=== PATIENT | male | born 1960 | race Caucasian/White ===

== ENCOUNTER 2020-12-06 10:39 | Emergency (ER) | payer BC, SELFPAY ==
--- NOTE | ~2020-12-06 | XR_ITS ---
EXAMINATION: XR chest 2V EXAM DATE: 12/06/2020 11:04 INDICATION: Chest tightness. TECHNIQUE: Frontal and lateral projections of the chest obtained and reviewed. Comparison is made to prior examination from 01/22/2016. FINDINGS: The lungs are clear. There are no pleural effusions. The cardiomediastinal silhouette is within normal limits. There is no pneumothorax suspected. There are bony degenerative changes. IMPRESSION: No acute cardiopulmonary findings. Reviewed, dictated and finalized at location B. ENSING AND MEASURING OPTICIAN
--- NOTE | 2020-12-06 10:41 | ECG_ITS ---
Measurements Intervals [place] Rate: 63 P: 24 CO: 171 QRS: 51 QRSD: 101 T: 54 QT: 391 QTc: 401 Interpretive Statements SINUS RHYTHM BASELINE WANDER- I, III NORMAL ECG Electronically Signed On 12-06-2020 11:17:21 IT INFRASTRUCTURE SPECIALIST by Milan Tejada D.O.
[2020-12-06 10:46] VITALS: BP 169/93; PULSE 66; RESP 18; TEMP 36.3; O2SAT 100
[2020-12-06 11:22] LABS: Basophils Percent Auto 0.3 % (0.2-1.2); Eosinophils Absolute Auto 0.1 K/mm3 (0-0.3); Eosinophils Percent Auto 0.8 % (0-4.4); Hematocrit 42.2 % (42.0-52.0); Hemoglobin 14.4 g/dL (14.0-18.0); Immature Granulocyte Absolute 0.01 K/mm3 (0.00-0.031); Immature Granulocyte Percent A 0.2 % (0-0.5); Lymphocytes Absolute Auto 1.38 K/mm3 (0.9-3.2); Lymphocytes Percent Auto 22.7 % (18.3-44.2); Mean Corpuscular HGB Conc 34.1 g/dl (32-36); Mean Corpuscular Hemoglobin 32.5 pg (26-34); Mean Corpuscular Volume 95.3 fl (80-100); Mean Platelet Volume 9.8 fl (7.4-10.4); Monocytes Absolute Auto 0.5 K/mm3 (0.1-0.6); Monocytes Percent Auto 8.4 % (2.6-8.5); Neutrophils Absolute Auto 4.1 K/mm3 (1.3-6.7); Neutrophils Percent Auto 67.6 % (45.5-73.1); Platelet Count Result 254 k/mm3 (150-375); Red Blood Count 4.43 M/mm3 (4.6-6.20); Red Cell Distribution Width 12.6 % (11.5-14.5); White Blood Count 6.1 K/mm3 (4.5-10.0)
[2020-12-06 11:34] LABS: Anion Gap 9 mmol/L (8-16); Blood Urea Nitrogen 18 mg/dL (9-20); Calcium 8.9 mg/dL (8.4-10.2); Carbon Dioxide 29 mmol/L (22-30); Chloride 103 mmol/L (98-107); Estimated CRCL calculation 64 ml/min; Estimated Glomerular Filt Rate > 60; Glucose 108 mg/dL (75-110); INR 0.9; Potassium 4.1 mmol/L (3.4-5.0); Sodium 141 mmol/L (137-145)
[2020-12-06 11:35] LABS: Partial Thromboplastin Time 27.2 SECONDS (22.3-36.8)
[2020-12-06 11:46] LABS: Troponin I < 0.012 ng/mL (0.000-0.034)
[2020-12-06 12:21] VITALS: BP 185/98; PULSE 64; RESP 17; O2SAT 97
--- NOTE | 2020-12-06 12:48 | ED.CHESTPAIN ---
HPI - Chest Pain General Chief Complaint: Chest Pain Stated Complaint: chest tightness Time Seen by Provider: 12/06/20 12:01 Source: patient Mode of arrival: ambulatory Limitations: no limitations History of Present Illness HPI narrative: A 60-year-old male presents to the emergency department with complaints of chest pain starting earlier this morning. Patient notes that its been intermittent for the last couple of days. He describes it more as a pressure. He states that it is worse first thing in the morning and tends to gradually go away throughout the day. Patient notes that he had a stress test back in 2012 that was normal. He only takes medicine for cholesterol. Patient states that the pressure stays in his central chest and does not radiate anywhere. Related Data Allergies Allergy/AdvReac Type Severity Reaction Status Date / Time No Known Allergies Allergy Unverified 03/19/17 14:50 Review of Systems Review of Systems: Narrative: CONSTITUTIONAL: Denies fever, chills, or sweats. EYES: Denies visual changes, redness, or discharge. ENT: Denies rhinorrhea, congestion, sore throat, or otalgia. CARDIOVASCULAR: Denies chest pain, palpitations, or edema. Endorses chest pressure RESPIRATORY: Denies cough or dyspnea. GASTROINTESTINAL: Denies abdominal pain, nausea, vomiting, or diarrhea. GENITOURINARY: Denies dysuria or hematuria. SKIN: Denies rash or itching. MUSCULOSKELETAL: Denies back pain, joint pain, or myalgia. NEUROLOGIC: Denies headache, numbness, dizziness, or weakness. PSYCHIATRIC: Denies anxiety or depression. [facility] Past Medical History Medical History Hyperlipidemia Social History Social History Gender identity (if verbalized by the patient): Male Exam Narrative: Exam Narrative: GENERAL: Well-appearing, well-nourished, and in no acute distress. HEAD: Normocephalic, atraumatic. EYES: PERRLA and EOMI. ENT: Nares clear, no rhinorrhea or epistaxis. Mucous membranes moist. Oropharynx without tonsillar hypertrophy exudate or other lesions. Bilateral TMs pearly [place] nonbulging NECK: Supple. No adenopathy or masses. No carotid bruits or JVD CHEST: Clear to auscultation. No respiratory distress. No wheezes rales or rhonchi HEART: Regular rate and rhythm. No murmur heard. Normal peripheral pulses. ABDOMEN: Soft, nontender, nondistended, normal active bowel sounds. EXTREMITIES: Normal range of motion. No edema. SKIN: Warm, dry, no rash. NEURO: No focal deficits. Alert and oriented x3. PSYCH: Normal mood and affect. Course Reevaluation(s) Reevaluation #1: Patient was resting comfortably in the room, he did politely declined the Ativan as he stated his symptoms were improved and he did not feel he needed it. He did take the GI cocktail and noted that his stomach seemed to calm down a little bit. Patient states he feels better and is ready to go home. Time: 13:45 Vital Signs Vital signs: Vital Signs Temperature 36.3 C L 12/06/20 10:46 Pulse Rate 66 12/06/20 10:46 Respiratory Rate 18 12/06/20 10:46 Blood Pressure 169/93 H 12/06/20 10:46 Pulse Oximetry 100 12/06/20 10:46 Temperature 36.3 C L 12/06/20 10:46 Pulse Rate 61 12/06/20 13:37 Respiratory Rate 16 12/06/20 13:37 Blood Pressure 168/101 H 12/06/20 13:37 Pulse Oximetry 98 12/06/20 13:37 MDM - Chest Pain MDM Narrative Medical decision making narrative: In brief this is a 60-year-old male who presented to the emergency department with complaints of chest pressure. Patient stated initially he thought it may have been due to anxiety. Patient was empirically treated with Ativan and a GI cocktail as he was also describing some symptoms that sound like GERD. Patient noted that his symptoms started early in the morning and seem to taper throughout the day. This did make me think of GERD. His initial troponin was found t
[2020-12-06] MEDS: BELLADONNA ALK/PHENOB ELIX 10 ML, MAG HYDROX/ALUMINUM HYD/SIMETH 30 ML, LIDOCAINE HCL 2... PO (13:10)
[2020-12-06 13:37] VITALS: BP 168/101; PULSE 61; RESP 16; O2SAT 98
--- NOTE | 2020-12-06 13:38 | PC.NURSE ---
pt declining Ativan at this time, willing to take gi cocktail Ativan wasted in front of head charger
[2020-12-06 14:20] LABS: Troponin I < 0.012 ng/mL (0.000-0.034)
== END 2020-12-06 15:01 | disposition home or self-care (01) ==
PROVIDERS: Emergency Medicine; Emergency Provider Emergency Medicine
DX: R07.89 Other chest pain (principal); E78.5 Hyperlipidemia, unspecified
CPT/HCPCS: 36415; 71046; 80048; 84484; 85025; 85610; 85730; 93005; 99284; A9270

== ENCOUNTER 2021-09-27 09:00 | Outpatient (RCR) | payer BC, SELFPAY ==
--- NOTE | 2021-09-03 13:37 | PTOPEVAL ---
PHYSICAL THERAPY EVALUATION AND PLAN OF CARE 09-03-21 Thank you for referring Christos Bolanos to [facility].? Hill is scheduled to be seen for therapy? 2 x/week for 3 weeks. Please review, sign, date and return this plan of care MATT. I agree with and certify that the following plan of care is medically necessary. Referring Physician Date Attending Provider: Rolando Jefferson DO PT Outpatient Evaluation Start: 09/03/21 12:39 Document 09/03/21 12:35 UMBERTO (Rec: 09/03/21 13:37 UMBERTO [id number]) Outpatient Past Medical History Past Medical History Source of Past Medical History Patient Neurological History Hx Neurological Disorders No Significant History Cardiovascular History Hx Hypercholesterolemia Yes: meds Respiratory History Hx Respiratory Disorders No Significant History Gastrointestinal History Hx Gastrointestinal Disorders No Significant History Genitourinary History Hx Genitourinary Disorders No Significant History Musculoskeletal History Hx Back Pain Yes Hx Other Musculoskeletal Disorders Yes: neck DDD- flare up with stress and wrong angle holding neck Hematological History Hx Hematological Disorders No Significant History Endocrine History Hx Endocrine Disorders No Significant History HEENT History Hx HEENT Disorders No Significant History Evaluation Information Problem Diagnosis back pain Onset 08-31-21 Subjective Information increase in back pain after Query Text:As Reported By Patient/ working on his truck- pulling Family and lifting; Diagnostic Tests X-Rays For This Problem No MRI For This Problem No Other Tests For This Problem No Previous Treatments Previous Treatments For This Problem no PT treatment for back Prior Level of Function Activity Level (Last 3 Months) Occupation manager medical--sitting, computer use;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
--- NOTE | 2021-09-27 09:51 | PTOPEVAL ---
PHYSICAL THERAPY DISCHARGE 09-27-21 Refer to the clinical summary below, for his status today, compared to the initial evaluation. The goals were partially achieved. Thank you for referring Christos Bolanos to [facility].? Please review, sign, date and return this Discharge Report MATT. I agree with and certify that the following plan of care is medically necessary. Referring Physician Date Attending Provider: Rolando Jefferson, Document 09/27/21 09:05 UMBERTO (Rec: 09/27/21 09:51 UMBERTO [id number]) Assessment Status Discharge Subjective Information Bill reports: less pain, have Query Text:As Reported By Patient/ been sleeping on his back with Family pillow under knees; have inversion table and doing it 3x/day 5 minute sessions; doing strengthening core exercises, feel like lost some wt over stomach; Pain Assessment Timing of Pain Assessment Timing of Pain Assessment Assessment Pain Scale Pain Scale Used Numeric (1 - 10) Self Report Pain Assessment Bilateral Back Reported Pain Level 1 Pain Description Aching Pain Frequency Chronic,Intermittent Other Pain Description R and L lumbar musculature Lowest Pain Intensity 0 Greatest Pain Intensity 5 Other Pain Aggravating Factors when awaken in AM- have an ache in back; Pain Score Pain Score 1: Self Report Additional Pain Score Comments Oswestry self assessment functional score 20% limitation in activity pt report with sleeping, no awakening due to pain Interventions Used Interventions Used By Clinicians Education,Exercise Pain Relief Interventions Used By Exercise,Medication,Position Patient Change Other Alleviating Interventions over the counter meds; using inversion table Lower Extremity Range of Motion General Lower Extremity Range of Motion Gross Lower Extremity Range of Motion standing trunk ROM: no pain Comments with trunk rotation R/L, side bend R/L, flexion/extension; all 4 arch/sag: slight thoracic mobility; mid back/ pray stretch prone: on elbows stretching Lower Extremity Muscle Strength Testing General Lower Extremity Strength Gross Lower Extremity Strength functional strength testing: -supine trunk stabilization with R/L hip flexion x 20 reps
== END 2021-09-27 15:44 | disposition home or self-care (01) ==
LOC: ANHPT 09:00
PROVIDERS: PCP Internal Medicine; Visit Provider Internal Medicine
DX: M54.9 Dorsalgia, unspecified (principal)
CPT/HCPCS: 97012; 97110; 97140; 97161

== ENCOUNTER 2022-08-11 00:37 | Day surgery (SDC) | payer BC, SELFPAY ==
[2022-07-31 12:14] VITALS: BMI 29.6
[2022-08-11 12:48] VITALS: BP 172/79; PULSE 64; RESP 16; TEMP 36.5; O2SAT 100; BMI 29.9
[2022-08-11] MEDS: LACTATED RINGERS 1,000 ML 150 ML IV CONT (12:57)
--- NOTE | 2022-08-11 12:59 | PM.IMHP ---
H&P: HPI History of Present Illness Date/Time: 08/11/22 12:59 Chief Complaint: Neoplasia screening. Narrative: This is a 61-year-old white male patient presents for screening colonoscopy. Patient reports his weight appetite and bowel movements are normal. He denies abdominal pain. Patient has had no bleeding. Family history is significant that his father had colon cancer. Patient presents today for surveillance colonoscopy. Review of Systems Review of Systems: Review of systems noncontributory. [facility] Past Medical History Medical History Allergies Arthritis Chest pain Excessive daytime sleepiness Painful joint Palpitation Snoring Family History Family History Father Cancer Mother Hypertension Heart problem Sibling Cancer Social History Social History Smoking status: Never smoker Second hand tobacco smoke exposure: No Alcohol intake: current Drinks per week: 10 Alcohol use details: Social Substance use: never Substance use type: does not use Living arrangements: with family Gender identity (if verbalized by the patient): Male Spiritual care concerns: No Meds Home Medications and Allergies Home Medications Medication Instructions Recorded Confirmed Type propranolol 20 mg tablet 20 mg PO Q12H PRN anxiety #60 tabs 05/03/21 08/11/22 Rx pantoprazole 40 mg tablet,delayed 40 mg PO QAM PRN Heartburn 07/04/21 08/11/22 History release cyclobenzaprine 10 mg tablet 10 mg PO BID PRN muscle spasm #60 11/11/21 08/11/22 Rx tabs saw palmetto 80 mg capsule 320 mg PO DAILY 11/11/21 08/11/22 History rosuvastatin 10 mg tablet 10 mg PO DAILY #90 tabs 05/30/22 08/11/22 Rx peg 3350-electrolytes 236 240 ml PO Q10M #4,000 mL 07/30/22 08/11/22 Rx gram-22.74 gram-6.74 gram-5.86 gram solution (Golytely) Allergies Allergy/AdvReac Type Severity Reaction Status Date / Time hay fever Allergy Unknown Unknown Uncoded 08/11/22 12:47 Vital Signs Vital Signs - 24 hr 08/11/22 12:48 Temperature 97.7 F Pulse Rate 64 Respiratory Rate 16 Blood Pressure 172/79 H Pulse Oximetry 100 Oxygen Delivery Room Air Exam Narrative: Physical exam reveals patient to be alert. Vital signs stable. HEENT exam is unremarkable. Patient is anicteric. Lungs are clear to auscultation and percussion. Heart is without murmur or extra sounds. Abdominal exam bowel sounds present soft nontender with no organomegaly. Digital external rectal exam is normal. Assessment and Plan Assessment and plan (1) Family history of colon cancer in father: Code(s): Z80.0 - Family history of malignant neoplasm of digestive organs Status: Acute Assessment and Plan: Patient's father had colon cancer. Plan is for surveillance colonoscopy now and consider this at intervals in the future.
--- NOTE | 2022-08-11 13:27 | P.PNAN_ITS ---
Anes - Initial Pre Proc Eval Procedure: Operation Date: 08/11/22 13:30 Proposed Procedures p Screening Colonoscopy - Tesfaye Carrillo MD Date/Time: 08/11/22 13:27 Surgeon: Tesfaye Carrillo MD Pre Op Diagnosis: family hx colon ca, neoplasm screening Patient Data Age: 61 Gender: M Height: 1.75 m Weight: 91.8 kg Last Vital Signs Temp 97.7 F 08/11/22 12:48 Pulse 64 08/11/22 12:48 Resp 16 08/11/22 12:48 BP 172/79 H 08/11/22 12:48 Pulse Ox 100 08/11/22 12:48 O2 Del Method Room Air 08/11/22 12:48 Allergies Allergy/AdvReac Type Severity Reaction Status Date / Time hay fever Allergy Unknown Unknown Uncoded 08/11/22 12:47 Home Medications Medication Instructions Recorded Confirmed Type propranolol 20 mg tablet 20 mg PO Q12H PRN anxiety #60 tabs 05/03/21 08/11/22 Rx pantoprazole 40 mg tablet,delayed 40 mg PO QAM PRN Heartburn 07/04/21 08/11/22 History release cyclobenzaprine 10 mg tablet 10 mg PO BID PRN muscle spasm #60 11/11/21 08/11/22 Rx tabs saw palmetto 80 mg capsule 320 mg PO DAILY 11/11/21 08/11/22 History rosuvastatin 10 mg tablet 10 mg PO DAILY #90 tabs 05/30/22 08/11/22 Rx peg 3350-electrolytes 236 240 ml PO Q10M #4,000 mL 07/30/22 08/11/22 Rx gram-22.74 gram-6.74 gram-5.86 gram solution (Golytely) Patient hx anesthesia problems: none Family hx anesthesia problems: none Results Review: All pre-operative results and documents have been reviewed as part of the pre- operative evaluation. [facility] Past Medical History Medical History Allergies Arthritis Chest pain Excessive daytime sleepiness Painful joint Palpitation Snoring Family History Family History Father Cancer Mother Hypertension Heart problem Sibling Cancer Social History Social History (Reviewed 11/11/21 @ 08:28 by Sri Giordano NP-CMaureen Smoking status: Never smoker Second hand tobacco smoke exposure: No Alcohol intake: current Drinks per week: 10 Alcohol use details: Social Substance use: never Substance use type: does not use Living arrangements: with family Gender identity (if verbalized by the patient): Male Spiritual care concerns: No Anes - Eval Final PreProcedure Day of Procedure 08/11/22 13:27 Patient weight: normal Heart: regular rate and rhythm Lungs: clear to auscultation Airway: Mallampati scale class II Neurological: alert and oriented Last oral intake: >/= 8 hours ASA classification: II Emergent: no Anesthetic plan: proceed Anesthesia type and monitoring: general GIVS and standard monitoring Results Review: All pre-operative results and documents have been reviewed as part of the pre- operative evaluation. Informed Consent: The patient's anesthetic plan and its attendant risks and benefits were discussed with the patient/family/POA. Questions were solicited and answers provided to the satisfaction of the patient/family/POA.
[2022-08-11 13:46] VITALS: BP 112/62; PULSE 66; RESP 12; O2SAT 96
[2022-08-11 13:56] VITALS: BP 133/88; PULSE 65; RESP 24; O2SAT 99
[2022-08-11 14:06] VITALS: BP 141/85; PULSE 57; RESP 15; O2SAT 100
== END 2022-08-11 14:18 | disposition home or self-care (01) ==
PROVIDERS: PCP Internal Medicine; Visit Provider Internal Medicine Gastroenterology
PROC: 0DJD8ZZ Inspection of Lower Intestinal Tract, Via Natural or Artificial Opening Endoscopic (ICD-10-PCS; CPT 45378; principal; 2022-08-11 13:30)
DX: Z12.11 Encounter for screening for malignant neoplasm of colon (principal); D12.5 Benign neoplasm of sigmoid colon; Z80.0 Family history of malignant neoplasm of digestive organs; K64.8 Other hemorrhoids; M19.90 Unspecified osteoarthritis, unspecified site; R00.2 Palpitations
CPT/HCPCS: 45385; 88305; J2704; J7120

== ENCOUNTER 2023-12-31 18:45 | Emergency (ER) | payer BC, SELFPAY ==
--- NOTE | ~2023-12-31 | XR_ITS ---
EXAMINATION: XR chest 2V DATE: 12/31/2023 20:59 INDICATION: High blood pressure. TECHNIQUE: Frontal and lateral views of the chest were obtained. COMPARISON: Chest 2 views 12/06/2020 FINDINGS: There is no pneumonia, pleural effusion, or pneumothorax. The heart size is normal. IMPRESSION: 1. No acute cardiopulmonary disease. Reviewed, dictated and finalized at location E. GHT RECEIVER
[2023-12-31 19:30] VITALS: BP 183/100; PULSE 75; RESP 16; TEMP 36.3; O2SAT 99
--- NOTE | 2023-12-31 19:38 | ECG_ITS ---
Measurements Intervals [place] Rate: 63 P: 23 LA: 173 QRS: 47 QRSD: 104 T: 47 QT: 386 QTc: 398 Interpretive Statements SINUS RHYTHM WITHIN NORMAL LIMITS COMPARED TO ECG 12/06/2020 10:48:45 NO SIGNIFICANT CHANGES Electronically Signed On 01-01-2024 7:13:08 TREATER HELPER by Kareem Sidhu M.D.
[2023-12-31 21:44] LABS: Basophils Percent Auto 0.1 % (0.2-1.2); Hemoglobin 14.6 g/dL (14.0-18.0); Immature Granulocyte Absolute 0.02 K/mm3 (0.00-0.031); Immature Granulocyte Percent A 0.2 % (0-0.5); Lymphocytes Absolute Auto 1.65 K/mm3 (0.9-3.2); Lymphocytes Percent Auto 18.9 % (18.3-44.2); Mean Corpuscular HGB Conc 33.2 g/dl (32-36); Mean Corpuscular Hemoglobin 31.9 pg (26-34); Mean Corpuscular Volume 96.3 fl (80-100); Mean Platelet Volume 9.6 fl (7.4-10.4); Monocytes Absolute Auto 0.5 K/mm3 (0.1-0.6); Monocytes Percent Auto 5.7 % (2.6-8.5); Neutrophils Absolute Auto 6.6 K/mm3 (1.3-6.7); Neutrophils Percent Auto 75.1 % (45.5-73.1); Platelet Count Result 274 k/mm3 (150-375); Red Blood Count 4.57 M/mm3 (4.6-6.20); Red Cell Distribution Width 12.7 % (11.5-14.5); White Blood Count 8.7 K/mm3 (4.5-10.0)
[2023-12-31 21:53] LABS: INR 0.9; Prothrombin Time 12.9 Seconds (11.1-14.7)
[2023-12-31 21:54] LABS: Alanine Aminotransferase 19 U/L (6-50); Albumin Level 4.8 g/dL (3.5-5.1); Alkaline Phosphatase 98 U/L (38-126); Anion Gap 11 mmol/L (8-16); Aspartate Amino Transferase 24 U/L (17-59); Blood Urea Nitrogen 20 mg/dL (9-20); Calcium 9.6 mg/dL (8.4-10.2); Carbon Dioxide 27 mmol/L (22-30); Chloride 102 mmol/L (98-107); Estimated CRCL calculation 69 ml/min; Estimated Glomerular Filt Rate > 60; Glucose 112 mg/dL (65-110); Lipase 70 U/L (23-300); Partial Thromboplastin Time 26.6 SECONDS (22.3-36.8); Potassium 4.1 mmol/L (3.4-5.0); Sodium 140 mmol/L (137-145)
[2023-12-31 22:05] LABS: Troponin I < 0.012 ng/mL (0.000-0.034)
[2023-12-31 23:24] VITALS: BP 198/98; PULSE 64; RESP 14; O2SAT 100
--- NOTE | 2024-01-01 | ECG_ITS ---
Measurements Intervals [place] Rate: 55 P: 15 HI: 192 QRS: 32 QRSD: 104 T: 43 QT: 410 QTc: 393 Interpretive Statements SINUS BRADYCARDIA OTHERWISE NORMAL ECG COMPARED TO ECG 12/31/2023 19:43:12 SINUS BRADYCARDIA NOW PRESENT Electronically Signed On 01-01-2024 7:18:36 GRAIN BLENDER by Kareem Sidhu M.D.
[2024-01-01 00:44] VITALS: BP 165/83; PULSE 70; RESP 15; O2SAT 100
[2024-01-01] MEDS: lisinopriL 10 MG TABLET PO (01:04)
--- NOTE | 2024-01-01 01:31 | ED.RECABL ---
HPI - Recheck/Abnormal Lab/Rx General Chief Complaint: Recheck/Abnormal Lab/Rx Stated Complaint: High blood pressure Time Seen by Provider: 01/01/24 00:09 Source: patient Mode of arrival: ambulatory Limitations: no limitations History of Present Illness HPI narrative: patient is a 63-year-old male who presents the ED with report of elevated blood pressure. Patient reports he had a new patient visit with a new primary care doctor last week and was found to have elevated blood pressure in office. He denies previous history of hypertension. States it has been several years since he has last seen a physician. Was told to monitor his blood pressures over the next 10 days and follow-up with PCP. Patient showed me his blood pressure log over the last several of days and pressures have been elevated greater than 145 systolic each time. Today patient was eating [employer] and drinking iced tea for launch when he decided to go to [place] to check his blood pressure. Blood pressure was noted to be elevated into the 200 systolic at that time. He was then referred for evaluation. Patient denies any symptoms associated with the elevated blood pressure. Denies dizziness, lightheadedness, headache, vision changes, chest pain, shortness breath, focal weakness or numbness. Related Data Home Medications Medication Instructions Recorded Confirmed pantoprazole 40 mg tablet,delayed 40 mg PO QAM PRN Heartburn 07/04/21 12/25/23 release chlordiazepoxide-clidinium 5 1 cap PO BID PRN anal pressure 12/25/23 12/25/23 mg-2.5 mg capsule Allergies Allergy/AdvReac Type Severity Reaction Status Date / Time hay fever Allergy Unknown Unknown Uncoded 12/25/23 08:54 Review of Systems Review of Systems: CONSTITUTIONAL: Denies fever, chills, or sweats. ENT: Denies vision changes. CARDIOVASCULAR: Denies chest pain, palpitations, or edema. RESPIRATORY: Denies cough or dyspnea. GASTROINTESTINAL: Denies abdominal pain, nausea, vomiting. NEUROLOGIC: Denies headache, dizziness, numbness, or weakness. 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 Family History Family History Father Cancer Mother Hypertension Heart problem Sibling Cancer Social History Social History Smoking status: Never smoker Second hand tobacco smoke exposure: No Alcohol intake: current Drinks per week: 10 Alcohol use details: Social Substance use: never Substance use type: does not use Lack of Transportation: No Lack of Food: Never True Current Housing: I Have Housing Concerned About Future Housing: No Difficulty Paying Gas/Electric Bills: No Difficulty Paying for Meds: No Currently Unemployed: No Education: Bachelor's Degree Difficulty w/ Childcare or Family Care: No Living arrangements: with family Occupation/Education: occupation Gender identity (if verbalized by the patient): Male Spiritual care concerns: No Exam Narrative: GENERAL: Well appearing, obese with BMI of 30.3, non-toxic, in no acute distress. HEAD: Normocephalic, atraumatic. RESPIRATORY: Airway patent, respirations nonlabored. Clear to auscultation bilaterally, no rales, rhonchi, wheezing. CARDIOVASCULAR: Regular rate and rhythm without murmurs, rubs, or gallops. Radial pulses 2+ MUSCULOSKELETAL: Moves all extremities. No gross deformities. SKIN: Warm, dry, normal color. NEURO: A&O X3. Speech clear. Cranial nerves II-XII grossly intact. No ataxic movements. No focal deficits. PSYCHIATRIC: Appropriate mood and affect. Normal interaction.
[2024-01-01 01:37] LABS: Troponin I < 0.012 ng/mL (0.000-0.034)
== END 2024-01-01 02:12 | disposition home or self-care (01) ==
PROVIDERS: Emergency Medicine; Emergency Provider Physician Assistant; PCP Family Medicine
DX: I10 Essential (primary) hypertension (principal); M19.90 Unspecified osteoarthritis, unspecified site; Z86.16 Personal history of COVID-19; Z85.828 Personal history of other malignant neoplasm of skin; R00.1 Bradycardia, unspecified
CPT/HCPCS: 36415; 71046; 80053; 83690; 84484; 85025; 85610; 85730; 93005; 99284; A9270

== ENCOUNTER 2024-02-09 15:54 | Outpatient (CLI) | payer BC, SELFPAY ==
--- NOTE | ~2024-02-09 | MR_ITS ---
MRI of the right foot CLINICAL HISTORY: Pain TECHNIQUE: Axial STIR, proton-density and proton-density fat-sat images, sagittal T1-weighted and STI R images, and coronal T1-weighted and STIR images were performed. FINDINGS: There is stress fracture the midshaft of the second metatarsal with extensive surrounding m arrow edema, as well as surrounding soft tissue edema. Remaining osseous structures are intact, with normal marrow signal. Joint spaces are preserved. No joint effusion seen. Flexor and extensor tendons are intact. No other distinct soft tissue abnormality seen. No soft tissu e mass or fluid collection evident. Plantar fascia is intact. Lisfranc ligament is intact. IMPRESSION: Stress fracture of the midshaft of the second metatarsal with extensive surrounding marrow and soft t issue edema. Reviewed, dictated and finalized at location . IMPRESSION: Stress fracture of the midshaft of the second metatarsal with extensive surroun ding marrow and soft tissue edema.
== END 2024-02-09 15:55 ==
LOC: MICIMG 15:55
PROVIDERS: PCP Podiatrist Foot & Ankle Surgery; Visit Provider Podiatrist Foot & Ankle Surgery
DX: G57.61 Lesion of plantar nerve, right lower limb (principal); M66.271 Spontaneous rupture of extensor tendons, right ankle and foot; M77.51 Other enthesopathy of right foot and ankle; M79.671 Pain in right foot; M84.374A Stress fracture, right foot, initial encounter for fracture
CPT/HCPCS: 73718

== ENCOUNTER 2024-04-29 09:23 | Outpatient (CLI) | payer BC, SELFPAY ==
[2024-04-29 18:38] LABS: Cholesterol 176 mg/dL (0-200); HDL Direct 55 mg/dL; Triglycerides 82 mg/dL (<150)
[2024-04-29 18:49] LABS: LDL Cholesterol Direct 99 mg/dL
== END 2024-04-29 09:24 | disposition home or self-care (01) ==
LOC: ANHGOSHLAB 09:25
PROVIDERS: PCP Family Medicine; Visit Provider Family Medicine
DX: E78.5 Hyperlipidemia, unspecified (principal)
CPT/HCPCS: 36415; 80061